=== PATIENT | male | born 1995 | race Caucasian/White ===

== ENCOUNTER 2022-10-27 18:35 | Emergency (ER) | payer BC, SELFPAY ==
--- NOTE | 2022-10-27 18:37 | ED.GENADULT ---
HPI - General Adult General Chief complaint: Unspecified Stated complaint: tingling in fingers Time Seen by Provider: 10/27/22 18:37 Source: patient Mode of arrival: ambulatory Limitations: no limitations History of Present Illness HPI narrative: Milton is a 27-year-old male patient presenting to the clinic today with complaints of tingling in his left 4th and 5th fingers since 3:00 this afternoon. He reports he was working on a desk and has his elbow placed on top of the desk at the time his symptoms began. States that he is having constant numbness in the 4th and 5th finger now. Denies any neck injury or pain, shoulder pain, or elbow pain. Blood pressure is elevated in the clinic. Patient does not have any known diagnosis of high blood pressure however his states that his pressures been 160s over 100 for a while. Related Data Allergies Allergy/AdvReac Type Severity Reaction Status Date / Time No Known Allergies Allergy Unknown Verified 10/27/22 18:48 Review of Systems Review of Systems: Pertinent positives per HPI. Patient denies any fever, chills, rash, headache, visual changes, dizziness, cough, runny nose, sore throat, shortness of breath, chest pain, palpitations, nausea, vomiting, diarrhea, constipation, abdominal pain, or any urinary issues. PMFSH Comments At the time of my signature, I reviewed and agree with the nursing past medical, surgical, social, and family history. There is no relevant family history pertinent to the patient complaint. Exam Narrative: General: Well-developed, well nourished, in no apparent distress Head: Normocephalic, atraumatic. Cardio: Regular rate and rhythm, s1 and s2 normal, no murmur appreciated. Resp: Clear to auscultation bilaterally, no rhonchi, rales, wheezing or rubs. Extremities: No deformity, no edema, no cyanosis, capillary refill less than 2 seconds, peripheral pulses palpable and strong. Integumentary: [place], warm, and dry, intact without lesion, no rashes. Musculoskeletal: No deformity, non-tender to palpation, negative Phalen's, Tinel's sign positive over the ulnar elbow/wrist, hand sheriff detective strong and equal bilaterally, grossly normal range of motion, muscle strength strong and equal, peripheral pulse strong, no edema, no cyanosis, normal gait and station Course Course Emergency Course: Portions of this record may have been created with voice recognition software. Level of Care: Express Care Visit Vital Signs Vital signs: Vital Signs Temperature 37.0 C 10/27/22 18:47 Pulse Rate 80 10/27/22 18:47 Respiratory Rate 16 10/27/22 18:47 Blood Pressure 183/127 H 10/27/22 18:47 Pulse Oximetry 99 10/27/22 18:47 Oxygen Delivery Room Air 10/27/22 18:47 Temperature 37.0 C 10/27/22 18:47 Pulse Rate 80 10/27/22 18:47 Respiratory Rate 16 10/27/22 18:47 Blood Pressure 184/124 H 10/27/22 19:01 Pulse Oximetry 99 10/27/22 18:47 Oxygen Delivery Room Air 10/27/22 18:47 Vital signs reviewed Medical Decision Making MDM Narrative Medical decision making narrative: At the time of visit patient is resting comfortably on the exam table. Patient has paresthesias to the 4th and 5th fingers with positive Tinel sign so I feel as though he has nerve irritation causing the possible paresthesia. Patient's blood pressure is also elevated in the clinic 183/127 and 184/124 manual. UA was negative for any protein an EKG shows sinus rhythm with heart rate of 65 beats per minute with a possible incomplete right bundle branch block. Discuss transfer to the ER for further evaluation however contacted the ER physician Dr. Paniagua at [facility] and he states they would be happy to see the patient however will be several hours before they would be able to evaluate him. Discussed this with the patient the patient voiced understanding and would like to be discharged home and follow-up with a PCP in the morning. Patient denies any dizziness, visual changes, headac
[2022-10-27 18:47] VITALS: BP 183/127; PULSE 80; RESP 16; TEMP 37; O2SAT 99
[2022-10-27 19:01] VITALS: BP 184/124
--- NOTE | 2022-10-27 19:01 | PC.NURSE ---
Manual BP taken, 184/124. C[employer] aware. Will check urine for protein at this time Denies hx of HTN. Does not have a PCP at this time and does not take any BP medication
--- NOTE | 2022-10-27 19:19 | ECG_ITS ---
Measurements Intervals [place] Rate: 65 P: 29 RI: 168 QRS: 5 QRSD: 112 T: 23 QT: 390 QTc: 407 Interpretive Statements SINUS RHYTHM INCOMPLETE RIGHT BUNDLE BRANCH BLOCK [90+ ms QRS DURATION, TERMINAL R IN V1/V2, 40+ ms S IN I/aVL/V4/V5/V6] ABNORMAL ECG NO PREVIOUS ECG AVAILABLE FOR COMPARISON Electronically Signed On 10-28-2022 13:46:26 CDT by Quinn Hyman M.D.
== END 2022-10-27 19:39 | disposition home or self-care (01) ==
PROVIDERS: Emergency Provider Nurse Practitioner Family
DX: R20.2 Paresthesia of skin (principal); R03.0 Elevated blood-pressure reading, without diagnosis of hypertension; I45.10 Unspecified right bundle-branch block
CPT/HCPCS: 81003; 93005; 99213; G0463